=== PATIENT | male | born 1955 | race Caucasian/White ===

== ENCOUNTER 2017-10-24 08:08 | Emergency (ER) | payer OTHER, SELFPAY ==
[2017-10-24] MEDS ORDERED: NA CHLORIDE 0.9% 1,000 ML ONE (08:18)
[2017-10-24] MEDS ORDERED: FOLIC ACID 5 MG/ML VIAL ONE (08:19)
[2017-10-24 08:35] LABS: Absolute Lymphocytes (CBC) 1.6 K/uL (0.7-4.9); Absolute Monocytes 0.9 K/uL (0.1-1.3); Absolute Neutrophil 7.6 K/uL (1.8-8.0); Basophils % 1.2 % (0-1.3); Eosinophils % 2.6 % (0-4.4); MCH 28.7 pg (27.0-35.0); MCV 86.2 fL (80-100); MPV 8.6 fL (7.6-11.3); Monocytes % 8.6 % (3.3-12.3); RBC Red Blood Cell Count 5.34 M/uL (4.33-5.43)
[2017-10-24] MEDS ORDERED: ASPIRIN 81 MG CHEWABLE TABLET ONE (08:36)
--- NOTE | 2017-10-24 08:39 | EDPHYS ---
Physician Documentation [facility] Name: Espinoza Greer Age: 62 yrs Sex: Male : 1955 Arrival Date: 10/24/2017 Time: 08:12 Bed 5 Private MD: ED Physician Karthik Story HPI: 10/24 08:16 This 62 yrs old Male presents to ER via Unassigned with complaints of Facial jaclyn Droop. 08:16 The patient presents to the emergency department with weakness of the left side of the jaclyn face, that is moderate. Onset: The symptoms/episode began/occurred this morning. Context: occurred at home. Associated signs and symptoms: The patient has no apparent associated signs or symptoms. Severity of symptoms: At their worst the symptoms were mild. Patient's baseline: Neuro:. Current symptoms: paralysis or paresis, of the forehead, left cheek, left eye, chin and left jaw, that is mild. Historical: - Allergies: 08:15 No Known Allergies; aa5 - Home Meds: 08:39 losartan 100 mg oral tab 1 tab once daily [Active]; allopurinol 100 mg Oral tab once aa5 daily [Active]; amlodipine 10 mg tab 1 tab once daily [Active]; hydrochlorothiazide 25 mg Oral tab 1 tab once daily [Active]; metoprolol succinate 100 mg oral Tb24 1 tab once daily [Active]; atorvastatin 10 mg oral tab 1 tab once daily [Active]; etodolac 400 mg Oral tab 1 tab 2 times per day [Active]; cyclobenzaprine 10 mg Oral tab PRN [Active]; - PMHx: 08:15 Hypertension; Sleep Apnea; Renal Cancer; aa5 - PSHx: 08:15 Right kidney removed (kidney cancer); aa5 - Immunization history:: Adult Immunizations up to date. - Family history:: not pertinent. - Ebola Screening: : No symptoms or risks identified at this time. - Social history:: Smoking status: Patient uses tobacco products, chewing tobacco, Patient uses alcohol, but reports only rare drinking. Patient/guardian denies using street drugs. ROS: 08:16 Constitutional: Negative for fever, chills, and weight loss, Eyes: Negative for injury, jaclyn pain, redness, and discharge, ENT: Negative for injury, pain, and discharge, Neck: Negative for injury, pain, and swelling, Cardiovascular: Negative for chest pain, palpitations, and edema, Respiratory: Negative for shortness of breath, cough, wheezing, and pleuritic chest pain, Abdomen/GI: Negative for abdominal pain, nausea, vomiting, diarrhea, and constipation, Back: Negative for injury and pain, : Negative for injury, bleeding, discharge, and swelling, MS/Extremity: Negative for injury and deformity, Skin: Negative for injury, rash, and discoloration, Psych: Negative for depression, anxiety, suicide ideation, homicidal ideation, and hallucinations, Allergy/Immunology: Negative for hives, rash, and allergies, Endocrine: Negative for neck swelling, polydipsia, polyuria, polyphagia, and marked weight changes, Hematologic/Lymphatic: Negative for swollen nodes, abnormal bleeding, and unusual bruising. 08:16 Neuro: Positive for weakness, left face, forehead involved. 08:32 Neuro: Positive for awoke likr this, was up for 5 minutes, took a drink of water, water jaclyn out of the left side of his mouth. then to er. Exam: 08:16 Constitutional: This is a well developed, well nourished patient who is awake, alert, jaclyn and in no acute distress. Eyes: Pupils equal round and reactive to light, extra-ocular motions intact. Lids and lashes normal. Conjunctiva and sclera are non-icteric and not injected. Cornea within normal limits. Periorbital areas with no swelling, redness, or edema. ENT: Nares patent. No nasal discharge, no septal abnormalities noted. Tympanic membranes are normal and external auditory canals are clear. Oropharynx with no redness, swelling, or masses, exudates, or evidence of obstruction, uvula midline. Mucous membranes moist. Neck: Trachea midline, no thyromegaly or masses palpated, and no cervical lymphadenopathy. Supple, full range of motion without nuchal rigidity, or vertebral point tenderness. No Meningismus. Chest/axilla: Normal chest wall appearance and motion. Nontender with no deformity. No lesions are appreciated. Cardiovascular: Regular rate and rhythm with a normal S1 and S2. No gallops, murmurs, or rubs. Normal PMI, no JVD. No pulse deficits. Respiratory: Lungs have equal breath sounds bilaterally, clear to auscultation and percussion. No rales, rhonchi or wheezes noted. No increased work of breathing, no retractions or nasal flaring. Abdomen/GI: Soft, non-tender, with normal bowel sounds. No distension or tympany. No guarding or rebound. No evidence of tenderness throughout. Back: No spinal tenderness. No costovertebral tenderness. Full range of motion. Male : Normal genitalia with no discharge or lesions. Skin: Warm, dry with normal turgor. Normal color with no rashes, no lesions, and no evidence of cellulitis. MS/ Extremity: Pulses equal, no cyanosis. Neurovascular intact. Full, normal range of motion. Neuro: Awake and alert, GCS 15, oriented to person, place, time, and situation. Cranial nerves II-XII grossly intact. Motor strength 5/5 in all extremities. Sensory grossly intact. Cerebellar exam normal. Normal gait. Psych: Awake, alert, with orientation to person, place and time. Behavior, mood, and affect are within normal limits. 08:16 Head/face: left face involved, including forehead. 08:16 Neuro: Orientation: is normal, appropriate for stated age, no acute changes, Mentation: is normal, appropriate for stated age, no acute changes, Memory: is normal, appropriate for stated age, no acute changes, Cranial nerves: grossly normal, is grossly normal based on the patient's age, Cerebellar function: is grossly normal, is grossly normal based on the patient's age, no acute changes, Motor: moves all fours, Sensation: light touch is decreased in the left arm, Gait: not tested. seizure activity, is not displayed by the patient. Vital Signs: 08:15 BP 144 / 90; Pulse 66; Resp 20 S; Pulse Ox 98% on R/A; Pain 0/10; aa5 08:22 Temp 98.7(O); Weight 173.27 kg (R); Height 6 ft. 0 in. (182.88 cm) (R); aa5 08:50 BP 139 / 73; Pulse 58; Resp 18 S; Pulse Ox 94% on R/A; Pain 0/10; aa5 10:00 BP 136 / 78; Pulse 60; Resp 18 S; Pulse Ox 95% on R/A; Pain 0/10; aa5 08:22 Body Mass Index 51.81 (173.27 kg, 182.88 cm) aa5 NIH Stroke Scale Scores: 08:13 NIHSS Score: 2 aa5 08:26 NIHSS Score: 3 jaclyn 09:22 NIHSS Score: 2 aa5 MDM: 08:12 Patient medically screened. [facility] 08:19 Data reviewed: vital signs, nurses notes, lab test result(s), EKG, radiologic studies, [facility] CT scan, plain films. 10/24 08:15 Order name: Basic Metabolic Panel; Complete Time: 09:06 [facility] 10/24 08:15 Order name: BNP; Complete Time: 09:06 [facility] 10/24 08:15 Order name: CBC with Diff; Complete Time: 09:06 [facility] 10/24 08:15 Order name: Ckmb; Complete Time: 09:06 [facility] 10/24 08:15 Order name: CPK; Complete Time: 09:06 [facility] 10/24 08:15 Order name: LFT's; Complete Time: 09:06 [facility] 10/24 08:15 Order name: Magnesium; Complete Time: 09:06 [facility] 10/24 08:15 Order name: PT-INR; Complete Time: 09:06 [facility] 10/24 08:15 Order name: Ptt, Activated; Complete Time: 09:06 [facility] 10/24 08:15 Order name: Troponin (emerg Dept Use Only); Complete Time: 09:06 [facility] 10/24 08:15 Order name: Sed Rate; Complete Time: 09:06 [facility] 10/24 08:15 Order name: CRP; Complete Time: 09:06 [facility] 10/24 08:23 Order name: glucometer results - FOR PT WITH NO ID aa5 10/24 08:24 Order name: Glucose, Ancillary Testing EDMS 10/24 08:15 Order name: XRAY Chest (1 view); Complete Time: 09:06 [facility] 10/24 08:15 Order name: EKG; Complete Time: 08:16 [facility] 10/24 08:15 Order name: Cardiac monitoring; Complete Time: 08:19 [facility] 10/24 08:15 Order name: EKG - Nurse/Tech; Complete Time: 08:19 [facility] 10/24 08:15 Order name: IV Saline Lock; Complete Time: 08:19 [facility] 10/24 08:15 Order name: Labs collected and sent; Complete Time: 08:19 [facility] 10/24 08:15 Order name: O2 Per Protocol; Complete Time: 08:19 [facility] 10/24 08:15 Order name: CT Head Brain wo Cont; Complete Time: 09:06 [facility] 10/24 08:15 Order name: Brain Wo Cont MRI [facility] 10/24 09:43 Order name: Urine Dipstick--Ancillary (enter results) 10/24 10:00 Order name: Diet Regular; Complete Time: 10:00 aa5 10/24 08:15 Order name: O2 Sat Monitoring; Complete Time: 08:19 [facility] 10/24 08:15 Order name: Urine Dipstick-Ancillary (obtain specimen); Complete Time: 09:40 [facility] 10/24 08:30 Order name: Swallow Screen; Complete Time: 08:30 jl7 Administered Medications: 08:31 Drug: NS 0.9% 1000 ml Route: IV; Rate: 1 bolus; Site: left hand; jl7 08:31 Drug: foLIC Acid 1 mg Route: IVPB; Site: left hand; jl7 08:37 Drug: Aspirin Chewable Tablet 243 mg {Note: Pt took one 81 mg aspirin at home. Three 81 jl7 mg aspirin administered per Dr. Story at this time..} Route: PO; 09:21 Follow up: Response: No adverse reaction aa5 08:50 Drug: predniSONE 60 mg Route: PO; aa5 09:21 Follow up: Response: No adverse reaction aa5 08:50 Drug: valACYclovir 1000 mg Route: PO; aa5 09:21 Follow up: Response: No adverse reaction aa5 Point of Care Testing: Blood Glucose: 08:12 Blood Glucose: 83 mg/dL; aa5 Ranges: Critical Glucose Levels:Adult <50 mg/dl or >400 mg/dl <40 mg/dl or >180 mg/dl Disposition: 10/24/17 08:39 Transfer ordered to [facility]. Diagnosis are Ann's palsy, Weakness, Obesity, unspecified, Abnormal brain scan. - Reason for transfer: Higher level of care. - Accepting physician is to [facility], neuro. dr alvarenga, agrees with plan. - Condition is Stable. - Problem is new. - Symptoms have improved. NIH Stroke Scale - NIH Stroke Score Date: 10/24/2017 Time: 08:13 Total Score = 2 1a. Level of Consciousness (LOC) - 0(Alert) 1b. Level of Consciousness (LOC) (Year \T\ Age) - 0(Both) 1c. LOC Commands (Open \T\ Closes Eyes/Refractory Worker) - 0(Both) 2. Best Gaze (Lateral Gaze Paresis) - 0(Normal) 3. Visual Field Loss - 0(No visual loss) 4. Facial Palsy - 1(Minor Paralysis) 5a. Left Arm: Motor (10-second hold) - 0(No drift) 5b. Right Arm: Motor (10-second hold) - 0(No drift) 6a. Left Leg: Motor (5-second hold - always test supine) - 0(No drift) 6b. Right Leg: Motor (5-second hold - always test supine) - 0(No drift) 7. Limb Ataxia (finger/nose \T\ heel/navarrete - test with eyes open) - 0(Absent) 8. Sensory Loss (pinprick arms/legs/face) - 1(Mild to moderate loss) 9. Best Language: Aphasia (description/naming/reading) - 0(No aphasia) 10. Dysarthria (speech clarity - read or repeat words) - 0(Normal) 11. Extinction and Inattention (visual/tactile/auditory/spatial/personal) - 0(No abnormality) Initials: aa5 NIH Stroke Scale - NIH Stroke Score Date: 10/24/2017 Time: 08:26 Total Score = 3 1a. Level of Consciousness (LOC) - 0(Alert) 1b. Level of Consciousness (LOC) (Year \T\ Age) - 0(Both) 1c. LOC Commands (Open \T\ Closes Eyes/Refractory Worker) - 0(Both) 2. Best Gaze (Lateral Gaze Paresis) - 0(Normal) 3. Visual Field Loss - 0(No visual loss) 4. Facial Palsy - 2(Partial paralysis) 5a. Left Arm: Motor (10-second hold) - 0(No drift) 5b. Right Arm: Motor (10-second hold) - 0(No drift) 6a. Left Leg: Motor (5-second hold - always test supine) - 0(No drift) 6b. Right Leg: Motor (5-second hold - always test supine) - 0(No drift) 7. Limb Ataxia (finger/nose \T\ heel/navarrete - test with eyes open) - 0(Absent) 8. Sensory Loss (pinprick arms/legs/face) - 1(Mild to moderate loss) 9. Best Language: Aphasia (description/naming/reading) - 0(No aphasia) 10. Dysarthria (speech clarity - read or repeat words) - 0(Normal) 11. Extinction and Inattention (visual/tactile/auditory/spatial/personal) - 0(No abnormality) Initials: jaclyn NIH Stroke Scale - NIH Stroke Score Date: 10/24/2017 Time: 09:22 Total Score = 2 1a. Level of Consciousness (LOC) - 0(Alert) 1b. Level of Consciousness (LOC) (Year \T\ Age) - 0(Both) 1c. LOC Commands (Open \T\ Closes Eyes/Refractory Worker) - 0(Both) 2. Best Gaze (Lateral Gaze Paresis) - 0(Normal) 3. Visual Field Loss - 0(No visual loss) 4. Facial Palsy - 1(Minor Paralysis) 5a. Left Arm: Motor (10-second hold) - 0(No drift) 5b. Right Arm: Motor (10-second hold) - 0(No drift) 6a. Left Leg: Motor (5-second hold - always test supine) - 0(No drift) 6b. Right Leg: Motor (5-second hold - always test supine) - 0(No drift) 7. Limb Ataxia (finger/nose \T\ heel/navarrete - test with eyes open) - 0(Absent) 8. Sensory Loss (pinprick arms/legs/face) - 1(Mild to moderate loss) 9. Best Language: Aphasia (description/naming/reading) - 0(No aphasia) 10. Dysarthria (speech clarity - read or repeat words) - 0(Normal) 11. Extinction and Inattention (visual/tactile/auditory/spatial/personal) - 0(No abnormality) Initials: aa5 Signatures: Dispatcher [employer] EDKarthik Payne MD MD cha Calderon, Audri, RN RN aa5 Miguel Angel Barraza RN RN jl7 Corrections: (The following items were deleted from the chart) 08:39 08:39 10/24/2017 08:39 Transfer ordered to [facility]. jaclyn Diagnosis is Ann's palsy; Weakness. Reason for transfer: Higher level of care. Accepting physician is to [facility], neuro. dr alvarenga, agrees with plan. Condition is Stable. Problem is new. Symptoms have improved. [facility] 09:08 08:39 10/24/2017 08:39 Transfer ordered to [facility]. jaclyn Diagnosis is Ann's palsy; Weakness; Obesity, unspecified. Reason for transfer: Higher level of care. Accepting physician is to [facility], neuro. dr alvarenga, agrees with plan. Condition is Stable. Problem is new. Symptoms have improved. [facility] 10:41 09:08 10/24/2017 08:39 Transfer ordered to [facility]. aa5 Diagnosis is Ann's palsy; Weakness; Obesity, unspecified; Abnormal brain scan. Reason for transfer: Higher level of care. Accepting physician is to [facility] neuro. dr alvarenga, agrees with plan. Condition is Stable. Problem is new. Symptoms have improved. jaclyn
--- NOTE | 2017-10-24 08:39 | ER ---
Nurse's Notes [facility] Name: Espinoza Greer Age: 62 yrs Sex: Male : 1955 Arrival Date: 10/24/2017 Time: 08:12 Bed 5 Private MD: Diagnosis: Ann's palsy;Weakness;Obesity, unspecified;Abnormal brain scan Presentation: 10/24 08:12 Presenting complaint: Patient states: "When I woke up and drank some water my aa5 pointed out that the left side of my face wasn't working". Pt reports left facial droop. Pt also reports decreased sensation to left side of face and left arm. 08:12 Transition of care: patient was not received from another setting of care. An acute aa5 neurological deficit is present. The patients blood glucose was checked before arriving to the hospital and was found to be normal. Onset of symptoms Onset of symptoms was October 24, 2017 at 05:40. Risk Assessment: Do you want to hurt yourself or someone else? Patient reports no desire to harm self or others. Initial Sepsis Screen: Does the patient meet any 2 criteria? No. Patient's initial sepsis screen is negative. Does the patient have a suspected source of infection? No. Patient's initial sepsis screen is negative. Care prior to arrival: IV initiated. 20 GA, in the left hand, Glucose check: 87. 08:12 Method Of Arrival: EMS: [facility] aa5 08:12 Acuity: AMBER 2 aa5 08:12 Note Pt reports going to bed at 2330 last night without symptoms. aa5 08:12 Note EMS reports pt was given ASA 81 mg by prior to their arrival. aa5 Triage Assessment: 08:15 The onset of the patients symptoms was October 24, 2017 at 05:40. aa5 Stroke Activation: Symptom onset > 6 hours Physician: Stroke Attending; Name: ; Notified At: ; Arrived At: Physician: Chief Stroke Resident; Name: ; Notified At: ; Arrived At: Physician: Stroke Resident; Name: ; Notified At: ; Arrived At: Physician: ED Attending; Name: ; Notified At: ; Arrived At: Physician: ED Resident; Name: ; Notified At: ; Arrived At: Historical: - Allergies: 08:15 No Known Allergies; aa5 - Home Meds: 08:39 losartan 100 mg oral tab 1 tab once daily [Active]; allopurinol 100 mg Oral tab once aa5 daily [Active]; amlodipine 10 mg tab 1 tab once daily [Active]; hydrochlorothiazide 25 mg Oral tab 1 tab once daily [Active]; metoprolol succinate 100 mg oral Tb24 1 tab once daily [Active]; atorvastatin 10 mg oral tab 1 tab once daily [Active]; etodolac 400 mg Oral tab 1 tab 2 times per day [Active]; cyclobenzaprine 10 mg Oral tab PRN [Active]; - PMHx: 08:15 Hypertension; Sleep Apnea; Renal Cancer; aa5 - PSHx: 08:15 Right kidney removed (kidney cancer); aa5 - Immunization history:: Adult Immunizations up to date. - Family history:: not pertinent. - Ebola Screening: : No symptoms or risks identified at this time. - Social history:: Smoking status: Patient uses tobacco products, chewing tobacco, Patient uses alcohol, but reports only rare drinking. Patient/guardian denies using street drugs. Screenin:35 Abuse screen: Denies threats or abuse. Nutritional screening: No deficits noted. aa5 Tuberculosis screening: No symptoms or risk factors identified. Fall Risk None identified. Assessment: 08:13 General: Appears comfortable, Behavior is calm, cooperative. Pain: Denies pain. Neuro: aa5 Level of Consciousness is awake, alert, obeys commands, Oriented to person, place, time, situation, Relay Record Clerk are equal bilaterally Moves all extremities. Speech is normal, Facial droop on left, Pupils are PERRLA, sensation decreased to left side of face and left arm. . Cardiovascular: Heart tones S1 S2 present Rhythm is regular. Respiratory: Airway is patent Respiratory effort is even, unlabored, Respiratory pattern is regular, symmetrical. GI: No signs and/or symptoms were reported involving the gastrointestinal system. Abdomen is obese. : No signs and/or symptoms were reported regarding the genitourinary system. EENT: No signs and/or symptoms were reported regarding the EENT system. Derm: Skin is pink, warm \\T\\ dry. Musculoskeletal: Range of motion: intact in all extremities. 08:15 Reassessment: after assessment by Dr. Story, code Stroke called now. iw 08:16 Reassessment: Pt taken to CT via stretcher, pt accompanied by Miguel Angel Barraza RN. aa5 08:22 T-PA (Activase) Screening: Contraindications: Patient reports onset of signs and aa5 symptoms of stroke greater than 6 hours ago: Yes. 08:31 The patient has not been NPO before screening. The patient is currently on the jl7 following diet: regular The patient is alert, and able to follow commands. The patient does not exhibit slurred or garbled speech. The patient is not exhibiting difficulty speaking. The patient does not exhibit difficulty understanding words. The patient is able to swallow own secretions with no drooling or need for suction. Patient tolerated one teaspoon of water. No drooling, immediate coughing, gurgling, or clearing of the throat was noted. The patient tolerated 90mL of water. No drooling, immediate coughing, gurgling, or clearing of the throat was noted. The patient passed the bedside swallow screening. Oral medications may be given as ordered. Contact Physician for further diet orders. Provider notified of bedside swallow screening results: Karthik Story MD. 08:55 Reassessment: Patient and/or family updated on plan of care and expected duration. Pain aa5 level reassessed. Patient is alert, oriented x 3, equal unlabored respirations, skin warm/dry/pink. Reassessment: Pt sitting up in bed, pt's at bedside. Awaiting complete lab results. . Pain: Denies pain. Neuro: Relay Record Clerk are equal bilaterally Moves all extremities. Speech is normal, Facial droop on left, Pupils are PERRLA, sensation decreased to left side of face and left arm . Cardiovascular: Rhythm is sinus bradycardia. 09:20 Reassessment: Dr. Story speaking to patient about transfer . aa5 09:22 Reassessment: Patient is alert, oriented x 3, equal unlabored respirations, skin aa5 warm/dry/pink. Pain: Denies pain. Neuro: Relay Record Clerk are equal bilaterally Moves all extremities. Speech is normal, Facial droop on left, Pupils are PERRLA, decreased to left side of face and left arm . Cardiovascular: Rhythm is sinus rhythm. 09:24 Reassessment: Report given to TOBIN Mcintyre at [facility] . aa5 09:25 Reassessment: Pt states "before I get transferred I want to make sure the [facility] is [facility] to [facility]", pt was notified we will contact the [facility] to ask. Transfer transport pending at this time. . 10:20 Reassessment: Pt and pt's was notified ER unit secretary has made several unsuccessful aa5 attempts to contact the [facility]. Pt's states "just go ahead and transfer him, he needs the MRI". ER unit secretary notified to contact EMS for transport now. . 10:30 Reassessment: Patient and/or family updated on plan of care and expected duration. Pain aa5 level reassessed. Patient is alert, oriented x 3, equal unlabored respirations, skin warm/dry/pink. Patient denies pain at this time. Pt sitting up in bed eating, pt tolerating well. Awaiting EMS. Vital Signs: 08:15 BP 144 / 90; Pulse 66; Resp 20 S; Pulse Ox 98% on R/A; Pain 0/10; aa5 08:22 Temp 98.7(O); Weight 173.27 kg (R); Height 6 ft. 0 in. (182.88 cm) (R); aa5 08:50 BP 139 / 73; Pulse 58; Resp 18 S; Pulse Ox 94% on R/A; Pain 0/10; aa5 10:00 BP 136 / 78; Pulse 60; Resp 18 S; Pulse Ox 95% on R/A; Pain 0/10; aa5 08:22 Body Mass Index 51.81 (173.27 kg, 182.88 cm) aa5 NIH Stroke Scale Scores: 08:13 NIHSS Score: 2 aa5 08:26 NIHSS Score: 3 jaclyn 09:22 NIHSS Score: 2 aa5 10:30 NIHSS Score: 2 aa5 ED Course: 08:12 Patient arrived in ED. iw 08:12 Karthik Story MD is Attending Physician. jaclyn 08:12 Initial lab(s) drawn, by me, sent to lab. jb1 08:13 Brea Perales, RN is Primary Nurse. aa5 08:13 Patient has correct armband on for positive identification. Bed in low position. Call aa5 light in reach. Side rails up X2. 08:15 Arm band placed on. aa5 08:[address] vm2 08:21 CT completed. vm2 08:22 Patient moved back from CT. vm2 08:23 CT Head Brain wo Cont In Process Unspecified. EDMS 08:28 Triage completed. aa5 08:33 X-ray completed. Portable x-ray completed in exam room. Patient tolerated procedure la2 well. 08:35 XRAY Chest (1 view) In Process Unspecified. EDMS 08:35 EKG done, by ED staff, reviewed by Karthik Story MD. jb1 09:44 contacted [facility], no answer in transfer center. talked to trimming machine set up operator was sent to [facility] medical admin, still no answer. left a message with the trimming machine set up operator to have the medical admin call me back. 10:39 No provider procedures requiring assistance completed. Patient transferred, IV remains aa5 in place. Administered Medications: 08:31 Drug: NS 0.9% 1000 ml Route: IV; Rate: 1 bolus; Site: left hand; jl7 10:00 Follow up: IV Status: Completed infusion aa5 08:31 Drug: foLIC Acid 1 mg Route: IVPB; Site: left hand; jl7 08:37 Drug: Aspirin Chewable Tablet 243 mg {Note: Pt took one 81 mg aspirin at home. Three 81 jl7 mg aspirin administered per Dr. Story at this time..} Route: PO; 09:21 Follow up: Response: No adverse reaction aa5 08:50 Drug: predniSONE 60 mg Route: PO; aa5 09:21 Follow up: Response: No adverse reaction aa5 08:50 Drug: valACYclovir 1000 mg Route: PO; aa5 09:21 Follow up: Response: No adverse reaction aa5 Point of Care Testing: Blood Glucose: 08:12 Blood Glucose: 83 mg/dL; aa5 Ranges: Outcome: 08:39 ER care complete, transfer ordered by [facility] 10:40 Transferred by ground EMS to [facility], Transfer form completed. aa5 X-rays sent w/ patient. Note: Report given to [facility] 10:40 Condition: stable 10:40 Instructed on the need for transfer, Demonstrated understanding of instructions. 10:41 Patient left the ED. aa5 NIH Stroke Scale - NIH Stroke Score Date: 10/24/2017 Time: 08:13 Total Score = 2 1a. Level of Consciousness (LOC) - 0(Alert) 1b. Level of Consciousness (LOC) (Year \\T\\ Age) - 0(Both) 1c. LOC Commands (Open \\T\\ Closes Eyes/Private Watchman) - 0(Both) 2. Best Gaze (Lateral Gaze Paresis) - 0(Normal) 3. Visual Field Loss - 0(No visual loss) 4. Facial Palsy - 1(Minor Paralysis) 5a. Left Arm: Motor (10-second hold) - 0(No drift) 5b. Right Arm: Motor (10-second hold) - 0(No drift) 6a. Left Leg: Motor (5-second hold - always test supine) - 0(No drift) 6b. Right Leg: Motor (5-second hold - always test supine) - 0(No drift) 7. Limb Ataxia (finger/nose \\T\\ heel/navarrete - test with eyes open) - 0(Absent) 8. Sensory Loss (pinprick arms/legs/face) - 1(Mild to moderate loss) 9. Best Language: Aphasia (description/naming/reading) - 0(No aphasia) 10. Dysarthria (speech clarity - read or repeat words) - 0(Normal) 11. Extinction and Inattention (visual/tactile/auditory/spatial/personal) - 0(No abnormality) Initials: aa5 NIH Stroke Scale - NIH Stroke Score Date: 10/24/2017 Time: 08: Total Score = 3 1a. Level of Consciousness (LOC) - 0(Alert) 1b. Level of Consciousness (LOC) (Year \\T\\ Age) - 0(Both) 1c. LOC Commands (Open \\T\\ Closes Eyes/Private Watchman) - 0(Both) 2. Best Gaze (Lateral Gaze Paresis) - 0(Normal) 3. Visual Field Loss - 0(No visual loss) 4. Facial Palsy - 2(Partial paralysis) 5a. Left Arm: Motor (10-second hold) - 0(No drift) 5b. Right Arm: Motor (10-second hold) - 0(No drift) 6a. Left Leg: Motor (5-second hold - always test supine) - 0(No drift) 6b. Right Leg: Motor (5-second hold - always test supine) - 0(No drift) 7. Limb Ataxia (finger/nose \\T\\ heel/navarrete - test with eyes open) - 0(Absent) 8. Sensory Loss (pinprick arms/legs/face) - 1(Mild to moderate loss) 9. Best Language: Aphasia (description/naming/reading) - 0(No aphasia) 10. Dysarthria (speech clarity - read or repeat words) - 0(Normal) 11. Extinction and Inattention (visual/tactile/auditory/spatial/personal) - 0(No abnormality) Initials: jaclyn NIH Stroke Scale - NIH Stroke Score Date: 10/24/2017 Time: 09:22 Total Score = 2 1a. Level of Consciousness (LOC) - 0(Alert) 1b. Level of Consciousness (LOC) (Year \\T\\ Age) - 0(Both) 1c. LOC Commands (Open \\T\\ Closes Eyes/Private Watchman) - 0(Both) 2. Best Gaze (Lateral Gaze Paresis) - 0(Normal) 3. Visual Field Loss - 0(No visual loss) 4. Facial Palsy - 1(Minor Paralysis) 5a. Left Arm: Motor (10-second hold) - 0(No drift) 5b. Right Arm: Motor (10-second hold) - 0(No drift) 6a. Left Leg: Motor (5-second hold - always test supine) - 0(No drift) 6b. Right Leg: Motor (5-second hold - always test supine) - 0(No drift) 7. Limb Ataxia (finger/nose \\T\\ heel/navarrete - test with eyes open) - 0(Absent) 8. Sensory Loss (pinprick arms/legs/face) - 1(Mild to moderate loss) 9. Best Language: Aphasia (description/naming/reading) - 0(No aphasia) 10. Dysarthria (speech clarity - read or repeat words) - 0(Normal) 11. Extinction and Inattention (visual/tactile/auditory/spatial/personal) - 0(No abnormality) Initials: aa5 NIH Stroke Scale - NIH Stroke Score Date: 10/24/2017 Time: 10:30 Total Score = 2 1a. Level of Consciousness (LOC) - 0(Alert) 1b. Level of Consciousness (LOC) (Year \\T\\ Age) - 0(Both) 1c. LOC Commands (Open \\T\\ Closes Eyes/Private Watchman) - 0(Both) 2. Best Gaze (Lateral Gaze Paresis) - 0(Normal) 3. Visual Field Loss - 0(No visual loss) 4. Facial Palsy - 1(Minor Paralysis) 5a. Left Arm: Motor (10-second hold) - 0(No drift) 5b. Right Arm: Motor (10-second hold) - 0(No drift) 6a. Left Leg: Motor (5-second hold - always test supine) - 0(No drift) 6b. Right Leg: Motor (5-second hold - always test supine) - 0(No drift) 7. Limb Ataxia (finger/nose \\T\\ heel/navarrete - test with eyes open) - 0(Absent) 8. Sensory Loss (pinprick arms/legs/face) - 1(Mild to moderate loss) 9. Best Language: Aphasia (description/naming/reading) - 0(No aphasia) 10. Dysarthria (speech clarity - read or repeat words) - 0(Normal) 11. Extinction and Inattention (visual/tactile/auditory/spatial/personal) - 0(No abnormality) Initials: aa5 Signatures: Dispatcher [employer] EDLit Munguia jb1 Virginie Armenta Corey, MD MD cha Williams, Irene, RN RN iw Brea Perales RN RN aa5 Miguel Angel Barraza RN RN jl7 Angie Hi 2 Natali Camacho2 Corrections: (The following items were deleted from the chart) 08:22 08:22 Patient moved back from CT. Patient moved back from radiology. vm2 vm2
[2017-10-24 08:40] LABS: Protime INR 1.21
--- NOTE | 2017-10-24 08:42 | RAD REPORT ---
EXAM DESCRIPTION: CT - Head Brain Wo Cont - 10/24/2017 8:23 am CLINICAL HISTORY: CVA COMPARISON: None. TECHNIQUE: All CT scans are performed using dose optimization technique as appropriate and may inclu de automated exposure control or mA/KV adjustment according to patient size. FINDINGS: No intracranial hemorrhage, hydrocephalus or extra-axial fluid collection.7 mm hypodense a farrah in the left frontal lobe subcortical white matter noted.No areas of brain edema or evidence of mi dline shift. The paranasal sinuses and mastoids are clear. The calvarium is intact. IMPRESSION: No acute intracranial hemorrhage is seen. 7 mm hypodensity in the left frontal lobe subcortical white matter noted. This could be related to bain bacute to chronic ischemia. If there is continued clinical concern for CVA, MR imaging of the brain would be recommended.
--- NOTE | 2017-10-24 08:43 | RAD REPORT ---
EXAM DESCRIPTION: RAD - Chest Single View - 10/24/2017 8:36 am CLINICAL HISTORY: Chest pain. COMPARISON: None. FINDINGS: Portable technique limits examination quality. A 2-3 centimeter mass is suspect in the inferior right lung. The heart is normal in size. No displace d fractures. IMPRESSION: A 2-3 cm mass is suspect in the inferior right lung. CT chest followup would be advised.
[2017-10-24 08:48] LABS: Potassium 3.8 mEq/L (3.6-5.0)
[2017-10-24] MEDS ORDERED: predniSONE 20 MG TAB ONE (08:51)
[2017-10-24] MEDS ORDERED: VALACYCLOVIR 500 MG TAB ONE (08:51)
[2017-10-24 08:54] LABS: Albumin 3.8 g/dL (3.2-5.5); Bilirubin Direct 0.2 mg/dL (0-0.2); Bilirubin Total 0.9 mg/dL (0.3-1.2); CKMB Creatine Kinase MB 1.5 ng/ml (0.3-4.0); Magnesium 1.9 mg/dL (1.8-2.5); Protein, Total 7.3 g/dL (6.0-8.3)
[2017-10-24 10:15] LABS: Urine Blood NEGATIVE (NEG); Urine Glucose NEGATIVE (NEG); Urine Protein TRACE (NEG); Urine pH 5.5 (5.0-7.0)
[2017-10-24 10:58] VITALS: TEMP 98.7
[2017-10-24 11:01] VITALS: BP 136/78; O2SAT 95
--- NOTE | 2017-10-25 09:12 | EKG ---
Test Date: 2017-10-24 Test Time: 08:30:16 Bumper Straightener: AL MEASUREMENT RESULTS: Intervals: Rate: 61 VA: 182 QRSD: 112 QT: 450 QTc: 453 [place]: P: 25 VA: 182 QRS: 48 T: 18 INTERPRETIVE STATEMENTS: Normal sinus rhythm Normal ECG Compared to ECG 08/25/2014 10:42:03 No significant changes Electronically Signed On 10-25-17 09:08:46 CDT by Curly Rivera
== END 2017-10-24 10:41 | disposition short-term general hospital (02) ==
LOC: ER 08:08
DX: G51.0 Bell's palsy (principal); R94.02 Abnormal brain scan; E66.9 Obesity, unspecified; I10 Essential (primary) hypertension; Z72.0 Tobacco use; Z85.53 Personal history of malignant neoplasm of renal pelvis
CPT/HCPCS: 36415; 70450; 71045; 80048; 80076; 81003; 82550; 82553; 83735; 83880; 84484; 85025; 85610; 85652; 85730; 86140; 93005; 96361; 96374; 99285; J7030; J7512